=== PATIENT | female | born 1995 | race Two or more races ===

== ENCOUNTER → 2019-01-10 | Outpatient (CLI) | payer BC ==
[2019-01-10 12:13] LABS: Alcohol, Urine < 3.0 mg/dL (0-5); Amphetamine Screen, Urine NEGATIVE (NEGATIVE); Barbiturate Scree,Urine NEGATIVE (NEGATIVE); Benzodiazephine Screen, Urine NEGATIVE (NEGATIVE); Cannabinoid Screen, Urine NEGATIVE (NEGATIVE); Cocaine Screen, Urine NEGATIVE (NEGATIVE); Opiate Scree,Urine NEGATIVE (NEGATIVE)
[2019-01-10 12:15] LABS: Phencyclidine Screen, Urine NEGATIVE (NEGATIVE)
[2019-01-11 07:06] LABS: RPR Non Reactive (Non Reactive)
== END | disposition home or self-care (01) ==
LOC: LAB 11:17
PROVIDERS: ATTEND Specialist
DX: Z34.03 Encounter for supervision of normal first pregnancy, third trimester (principal); Z3A.38 38 weeks gestation of pregnancy
CPT/HCPCS: 36415; 80307; 86592; 86703; 86762; 87340

== ENCOUNTER 2019-01-18 15:08 | Observation (INO) | payer BC | END 2019-01-18 16:20 | disposition home or self-care (01) | DRG 833 | LOC: LDRP 15:08 | PROVIDERS: ADMIT Obstetrics & Gynecology; ATTEND Obstetrics & Gynecology | DX: O48.0 Post-term pregnancy (principal); Z3A.40 40 weeks gestation of pregnancy | CPT/HCPCS: 59025; 76818; 81002; G0378 ==

== ENCOUNTER 2019-01-20 15:19 | Observation (INO) | payer BC | END 2019-01-20 17:05 | disposition home or self-care (01) | DRG 833 | LOC: LDRP 15:19 | PROVIDERS: ADMIT Specialist; ATTEND Specialist | DX: O48.0 Post-term pregnancy (principal); Z3A.40 40 weeks gestation of pregnancy; Z91.018 Allergy to other foods | CPT/HCPCS: 59025; 76818; 81002; G0378 ==

== ENCOUNTER 2019-01-21 07:55 | Inpatient (IN) | payer BC ==
[~2019-01-21] VITALS: Ht 165.1 cm; Wt 74.8 kg
[2019-01-21] MEDS ORDERED: LACT. RINGERS/OXYTOCIN 20UNITS 1,000 ML IV SCH (08:21)
[2019-01-21] MEDS ORDERED: WITCH HAZEL-GLYCERIN PAD TOP PRN (08:30)
[2019-01-21] MEDS ORDERED: METHYLERGONOVINE MALEATE 0.2 MG/ML AMP IM PRN (08:30)
[2019-01-21] MEDS ORDERED: DERMOPLAST 60ML BOTTLE TOP PRN (08:30)
[2019-01-21] MEDS ORDERED: LIDOCAINE 2%HCL (LOCAL ANESTH.) INJ 20ML MDV ID ONE (08:30)
[2019-01-21] MEDS ORDERED: NALBUPHINE HCL 10 MG/1ml INJECTION IV PRN (08:30)
[2019-01-21] MEDS ORDERED: PHISODERM TOP SOLN 240ML BTL TOP PRN (08:30)
[2019-01-21 09:03] LABS: Basophils # (auto) 0 uL; Basophils % (auto) 0.2 % (0.0-2.0); Eosinophils # (auto) 0 uL; Monocytes # (auto) 0.7 uL
[2019-01-21 09:04] LABS: Eosinophils % (auto) 0.3 % (0.0-7.0); Hematocrit 34.8 % (36.0-46.0); Hemoglobin 11.4 g/dL (12.2-16.2); Lymphocytes # (auto) 1.9 uL; Lymphocytes % (auto) 15.3 % (10.0-50.0); Mean Corpuscular Hgb Conc. 32.9 g/dL (32.0-36.0); Mean Corpuscular Volume 82.1 fL (80.0-100.0); Monocytes % (auto) 5.9 % (0.0-12.0); Neutrophils # (auto) 9.9 uL; Neutrophils % (auto) 78.3 % (37.0-80.0); Platelet Count (auto) 225 10^3/uL (140-450); Red Blood Cells 4.24 10^6/uL (4.0-5.20); Red Cell Distribution Width 15.3 % (11.8-14.3); White Blood Cell 12.7 10^3/uL (4.4-10.8)
[2019-01-21 09:11] LABS: Urine Bacteria NONE SEEN /hpf (None Seen); Urine Blood Negative /uL (Negative); Urine Mucus FEW (None Seen); Urine WBC 1 /hpf (0 - 5)
[2019-01-21 09:18] LABS: Albumin 2.4 g/dL (3.4-5.0); Calcium 8.6 mg/dL (8.5-10.1); Potassium 3.6 mmol/L (3.5-5.1)
[2019-01-21 09:22] LABS: BUN/Creatinine Ratio 10.2; Bilirubin, Total 0.2 mg/dL (0.2-1.0); Total Protein 6.3 g/dL (6.4-8.2)
[2019-01-21 09:46] LABS: INR < 0.93 (0.9-1.15); Partial Thromboplastin Time 25.4 sec (23.64-32.05)
[2019-01-21] MEDS: LACTATED RINGER'S 1,000 ML IV SCH ×2 (11:35→17:52)
[2019-01-22] MEDS ORDERED: PROMETHAZINE HCL 25 MG/ML 1ML ONE (02:54)
[2019-01-22] MEDS ORDERED: PROMETHAZINE HCL 25 MG/ML 1ML IM PRN (03:00)
[2019-01-22 08:07] LABS: RPR Non Reactive (Non Reactive)
[2019-01-22] MEDS ORDERED: LACTATED RINGER'S 1,000 ML IV ONE (10:16)
[2019-01-22] MEDS: LACTATED RINGER'S 1,000 ML IV SCH (10:23)
[2019-01-22] MEDS ORDERED: fentaNYL W ROPIVACAINE 150 ML EPI SCH (10:30)
[2019-01-22] MEDS ORDERED: ePHEDrine SULFATE 50 MG/ML AMP IV ONE (10:30)
[2019-01-22] MEDS ORDERED: NALOXONE HCL 0.4 MG/ML VIAL IV ONE (10:30)
[2019-01-22] MEDS ORDERED: LIDOCAINE 2%HCL (LOCAL ANESTH.) INJ 10ml MDV IJ ONE (11:45)
[2019-01-22] MEDS ORDERED: LIDOCAINE 2%HCL (LOCAL ANESTH.) INJ 20ML MDV ONE (11:47)
[2019-01-22] MEDS ORDERED: IBUPROFEN 600 MG TAB PO PRN (13:15)
--- NOTE | 2019-01-22 14:00 | NUR ---
Teaching: Reviewed information in [employer] booklet with patient. Discussed benefits of and risks associated with not . Discussed different positions, proper latch, feeding cues, and baby-led . Provided information of medication side effects related to . All questions and concerns addressed at this time. Patient verbalized understanding of information.
[2019-01-22 15:00] VITALS: BP 125/73
--- NOTE | 2019-01-22 15:00 | NUR ---
Ambulation: Patient OOB with standby assistance by RN. Patient ambulated to bathroom with steady gait. Patient able to void without difficulty. [facility] teaching provided with returned demonstration by patient. Clean gown provided and bed linen changed. Patient ambulated back to bed with steady gait and no distress noted.
[2019-01-22 19:00] VITALS: BP 117/64
[2019-01-22 23:00] VITALS: BP 115/56
[2019-01-23 03:00] VITALS: BP 109/66
[2019-01-23 07:15] VITALS: BP 107/54
[2019-01-23 10:44] VITALS: BP 101/55
[2019-01-23] MEDS ORDERED: PREN-96 PO (13:26)
--- NOTE | 2019-01-23 14:30 | NUR ---
Discharge: Discharge instructions given as ordered. Pt encouraged to follow up with [facility]ACHINE [facility]PER[facility] as instructed. All questions and concerns addressed. Patient verbalized understanding. Medication reconciliation completed and copy given to patient. All required/requested vaccines given and copies of vaccinations given to patient. Patient encouraged to prepare to depart unit.
--- NOTE | 2019-01-23 15:00 | NUR ---
IV removal 20G IV to right hand DC'd with sterile technique, catheter fully intact. Pressure dressing applied to site. Patient tolerated procedure well.
[2019-01-23 15:20] VITALS: BP 101/55
--- NOTE | 2019-01-23 15:20 | NUR ---
Discharge: Patient taken to vehicle via steady gait with all personal belongings, accompanied by staff and . No distress noted at time of departure, no adverse changes in status since initial assessment.
== END 2019-01-23 15:20 | disposition home or self-care (01) | DRG 807 ==
LOC: LDRP 07:55
PROVIDERS: ADMIT Specialist; ATTEND Specialist
PROC: 10E0XZZ Delivery of Products of Conception, External Approach (ICD-10-PCS; principal; 2019-01-22)
PROC: 0W8NXZZ Division of Female Perineum, External Approach (ICD-10-PCS; 2019-01-22)
DX: O48.0 Post-term pregnancy (principal); Z37.0 Single live birth; O33.6XX0 Maternal care for disproportion due to hydrocephalic fetus, not applicable or unspecified; Z88.8 Allergy status to other drugs, medicaments and biological substances; Z3A.40 40 weeks gestation of pregnancy
CPT/HCPCS: 36415; 59025; 59409; 80053; 81001; 84112; 85025; 85610; 85730; 86592; 86850; 86900; 86901; 96361; 96365; 96372; 96374; G0378; J2001; J2590